=== PATIENT | female | born 1990 | race Caucasian/White ===

== ENCOUNTER 2018-06-11 18:08 | Emergency (ER) | payer SELFPAY ==
[~2018-06-11] VITALS: Ht 165.1 cm; Wt 99.1 kg
[2018-06-11] MEDS ORDERED: PREN1.4T2 PO (18:11)
[2018-06-11 18:12] VITALS: BP 113/57
== END 2018-06-11 19:15 | disposition left against medical advice (07) ==
LOC: EMS 18:11
DX: Z53.21 Procedure and treatment not carried out due to patient leaving prior to being seen by health care provider (principal)